=== PATIENT | male | born 1995 | race Caucasian/White ===

== ENCOUNTER 2018-12-05 20:08 | Emergency (ER) | payer MEDICAID, OTHER ==
[~2018-12-05] VITALS: Ht 177.8 cm; Wt 83.0 kg
[2018-12-05 20:13] VITALS: BP 124/78
--- NOTE | 2018-12-05 20:50 | NUR ---
RECEIVED REPORT FROM RYAN NICOLE. PT RESTING IN BED USING PHONE. WILL CONTINUE TO MONITOR.
== END 2018-12-05 21:06 | disposition home or self-care (01) ==
LOC: ED 20:40
DX: R07.89 Other chest pain (principal)
CPT/HCPCS: 71046; 93005; 99283